=== PATIENT | male | born 1980 | race African-American/Black ===

== ENCOUNTER 2024-09-24 14:20 | Outpatient (CLI) | payer OTHER, SELFPAY ==
--- NOTE | ~2024-09-24 | US_ITS ---
TESTICULAR ULTRASOUND (Doppler ultrasound interrogation techniques used as needed for this exam.) Ordering provider: Jammie Sanabria, History: . L testicular pain . Comparison: None. FINDINGS: TESTICLES: Normal in size. The right measures 4.9x 2.3x 3.1 cm and the left measures 4.6x 2.1x 2.9 cm . Normal echogenicity bilaterally without mass lesion. Normal Doppler flow bilaterally. EPIDIDYMIDES: Normal in size. The right head measures 1.2x 0.5 cm. The right body thickness measures 0.3 cm. the left head measuring 1.4x 0.7 cm and the body thickness is 0.3 cm. Normal echogenicity bi laterally. Both demonstrate normal Doppler flow. HYDROCELE: None. VARICOCELE: Bilateral. OTHER ABNORMALITY: None seen. IMPRESSION: Bilateral varicocele. Otherwise, normal testicular ultrasound. Reviewed, dictated and finalized at location A.
== END 2024-09-24 14:21 | disposition home or self-care (01) ==
PROVIDERS: PCP Family Medicine; Visit Provider Family Medicine
DX: I86.1 Scrotal varices (principal)
CPT/HCPCS: 76870; 93976